=== PATIENT | female | born 1975 | race Caucasian/White ===

== ENCOUNTER → 2016-10-23 | Outpatient (CLI) | payer BC ==
[~2016-10-23] MED LIST: ALLGUNK; BCPILLS PO
== END | disposition home or self-care (01) ==
LOC: C.FOODA 10:10
PROVIDERS: ATTEND Family Medicine
DX: K90.0 Celiac disease (principal)

== ENCOUNTER → 2017-06-30 | Outpatient (CLI) | payer OTHER | END | disposition home or self-care (01) | LOC: C.PAPS 12:09 | PROVIDERS: ATTEND Family Medicine | DX: Z12.72 Encounter for screening for malignant neoplasm of vagina (principal) ==